=== PATIENT | male | born 1940 | race Two or more races ===

== ENCOUNTER 2025-04-08 07:47 | Inpatient (IN) | payer MEDICAID, SELFPAY ==
[2025-04-08] VITALS (52 sets, daily range): BP systolic 111–163; BP diastolic 54–89; PULSE 45–118; RESP 10–28; TEMP 36–39.3; O2SAT 83–100; BMI 25.8
--- NOTE | 2025-04-08 07:56 | EDNOTE_ITS ---
ED Seizures RME/HPI General Chief Complaint: Seizure Stated Complaint: SEIZURE Time Seen by Provider: 04/08/25 08:01 Arrival date/time: 04/08/25 07:47 Limitations: no limitations RME / HPI RME / HPI Narrative: 61 year old male with history of CVA, hemiplegia affecting right side, hyperlipidemia presents to the ED BIBA from [facility] for seizure like activity today. Per medics, on scene patient noted to have seizure like activity and given 4mg Versed. State seizure like activity had stopped. However noted en route patient developed a right-sided gaze. Per medics, [place] staff reported at baseline patient is a GCS of 14. Prehospital BS 122. On arrival to ED patient is unable to provide any additional history due to mental status. Related Data Allergies Allergy/AdvReac Type Severity Reaction Status Date / Time No Known Allergies Allergy Unverified 04/08/25 08:37 Review of Systems Review of Systems ROS Unobtainable: unobtainable due to mental status Past Medical History Past Medical History CARDIAC: Positive Cardiac Disorders and Hypercholesterolemia GASTROINTESTINAL: Positive Gastrointestinal Disorders and Irritable Bowel GENITOURINARY: Positive Genitourinary Disorders PSYCHO/SOCIAL: Positive Anxiety OTHER HISTORY: Positive Shingles and Chicken Pox Family History FAMILY HISTORY: Positive Family Cardiac Disorders (Father/Grandfather) and Family Gastrointestinal Problems (hepatitis mother) Social History SMOKING STATUS: Never smoker ED Exam General Limitations: Present no limitations Head Head exam: Present atraumatic and normocephalic Eye Eye exam: Present normal appearance ENT ENT exam: Present normal exam, normal oropharynx and mucous membranes moist Neck Neck exam: Present normal inspection, full ROM and trachea midline Chest Chest inspection: Present normal inspection and symmetric chest wall rise Respiratory Respiratory exam: Present normal lung sounds bilaterally Cardiovascular Cardiovascular exam: Present regular rate, normal rhythm and normal heart sounds Abdominal Exam Abdominal exam: Present soft and normal bowel sounds Neurological Exam Neurological exam: Present other (Weakness and contracture of the right upper and right lower extremities. ) Skin Skin exam: Present warm, dry, intact and normal color Course Quality Measures Current suspected stage: severe sepsis Possible source: unknown Blood cultures ordered: completed in ED Antibiotic ordered: Yes Pertinent labs: 04/08/25 04/08/25 08:10 12:16 Lactic Acid 4.8 H* mMol/L 2.2 H mMol/L (0.4-2.0) (0.4-2.0) Procalcitonin 0.08 ng/ml (0.0-0.49) sepsis Orders Category Date Time Status Bedside Influenza A&B Antigen Test NOW Care 04/08/25 13:32 Completed COVID-19 Screening Questionnaire NOW Care 04/08/25 14:37 Active COVID-19 Screening Questionnaire NOW Care 04/08/25 15:31 Active Waste Water Operator STAT Care 04/08/25 08:02 Active Continuous Pulse Oximetry STAT Care 04/08/25 08:02 Completed Decision to Admit X1 Care 04/08/25 14:37 Active Decision to Admit X1 Care 04/08/25 15:31 Active EKG (ED ONLY) *Do not use* NOW Care 04/08/25 08:02 Completed In and Out Catheter X1PRN Care 04/08/25 08:02 Completed Insert IV NOW Care 04/08/25 08:02 Active Miscellaneous Nursing Order NOW Care 04/08/25 13:00 Active NPO STAT Care 04/08/25 08:02 Active Strict Intake and Output Routine Care 04/08/25 08:[address] chest abdomen pelvis w con SEPSIS PROTOCOL Stat Exams 04/08/25 08:[address] head/brain wo con Stat Exams 04/08/25 08:08 Completed EKG (ED Only) Stat Exams 04/08/25 08:02 Ordered B-Type Natriuretic Peptide Stat Lab 04/08/25 08:10 Completed Blood Culture (Lab) Stat Lab 04/08/25 08:55 Received CBC Stat Lab 04/08/25 08:10 Completed COVID-19 Antigen (In-House) Stat Lab 04/08/25 13:42 Completed CSF Culture and Gram Stain Stat Lab 04/08/25 13:00 Results Cell Count w Diff, CSF Stat Lab 04/08/25 13:00 Completed Comprehensive Metabolic Panel Stat Lab 04/08/25 08:10 Completed Enterovirus RNA, PCR, CSF Stat Lab 04/08/25 13:00 Received Glucose,CSF Stat Lab 04/08/25 13:00 Completed HSV-1&2 DNA, QN, CSF* Stat Lab 04/08/25 13:00 Received LDH (Lactate Dehydrogenase) Stat Lab 04/08/25 08:10 Completed Lactate (Lactic Acid) Stat Lab 04/08/25 08:10 Completed Lactic Acid, 3 HR Stat Lab 04/08/25 12:16 Completed Lipase Stat Lab 04/08/25 08:10 Completed Magnesium Stat Lab 04/08/25 08:10 Completed Oligoclonal Bands, CSF* Stat Lab 04/08/25 13:00 Received Partial Thromboplastin Time Stat Lab 04/08/25 08:10 Completed Phosphorous Stat Lab 04/08/25 08:10 Completed Procalcitonin Stat Lab 04/08/25 08:10 Completed Protein Total,CSF Stat Lab 04/08/25 13:00 Completed Prothrombin Time with INR Stat Lab 04/08/25 08:10 Completed Troponin I Stat Lab 04/08/25 08:10 Completed Urinalysis Stat Lab 04/08/25 09:14 Completed Urine Culture Stat Lab 04/08/25 09:14 Received VDRL, CSF Qual* Stat Lab 04/08/25 13:00 Received West Nile Virus (IgG,IgM) CSF Stat Lab 04/08/25 13:00 Received Acetaminophen Ivpb [Ofirmev Inj] Med 04/08/25 08:07 Active 1,000 mg in 100 ml IV Q6HR LORazepam [Ativan Inj] Med 04/08/25 08:07 Discontinued 2 mg IVP X1 ONE Ondansetron Inj [Zofran Inj] Med 04/08/25 08:01 Active 4 mg IVP Q6HR PRN Piper/Tazo 3.375 gm Premix [Zosyn] Med 04/08/25 08:01 Discontinued 3.375 gm in 50 ml IV X1 Ringers Lactated 1000 ml [Lactated Ringers] 1,000 ml Med 04/08/25 08:01 Discontinued IV 999 mls/hr Vancomycin/Ns 1 gm Ivpb 200 ml Med 04/08/25 08:01 Discontinued IV X1 levETIRAcetam INJ [Keppra Inj] Med 04/08/25 08:07 Discontinued 1,000 mg IVP X1 ONE Oxygen Delivery NOW RT 04/08/25 08:02 Active Vital Signs Vital signs: Vital Signs Temperature 102.7 F H 04/08/25 08:02 Pulse Rate 99 04/08/25 08:02 Respiratory Rate 24 H 04/08/25 08:02 Blood Pressure 127/77 04/08/25 08:02 Pulse Oximetry (%) 96 04/08/25 08:02 Oxygen Delivery Method Oxy Mask 04/08/25 08:02 Oxygen Flow Rate 10 06/26/25 08:02 PROCEDURES: Procedure Comment Please refer to resident Dr. Devlin's note for LP procedure Seizure MDM Narrative MDM Narrative:: INoreen, hoda scribing for and in the presence of Dr. Bailey. Right-sided seizure consistent with hx of stroke, fever, AMS Assessment: sepsis with septic encephalopathy, fever, dehydration, hx of focal seizures, no airway issues, no hypoxia, no septic shock Plan: Sepsis work up, CT of head and abdomen/pelvis, alvarez catheter, antibiotics including Zosyn and Vancomycin, IV Tylenol, and IV fluids Patient data External records reviewed:: [facility] previous records (I reviewed ED visit on 07/29/2024 ), EMS form and Correction records (I reviewed pmhx and medication list from [facility] ) Clinical information provided by:: EMS (Provided prehospital course and hx ) Social determinants that could affect healthcare access:: housing (SNF resident ) Patient has the following chronic illnesses:: CVA, hemiplegia affecting right side, hyperlipidemia How is presenting disease/condition affected by chronic disease/condition?: exacerbated by Evaluation data The following diagnostics were reviewed and interpreted by me:: lab results, radiology exam(s) and EKG tracing(s) Lab and/or radiology exams considered but not ordered:: None Interpretation Summary: Ordering Physician: Gualberto Newman MD Date of Service: 04/08/25 Procedure(s): CT head/brain wo con Accession Number(s): [id number] cc: Gualberto Newman MD; Tom Tamayo MD; NO PRIMARY/FAMILY,PHYSICIAN~ Examination: CT brain head without contrast. 2-D sagittal coronal reconstructions Date and time of exam:April 08, 2025 0835 hours Comparison November 20, 2022. INDICATIONS: Seizures and fever today with head pain CTDI: vol (mGy):51.1 DLP: (mGycm):1079 Technique: Multiple CT axial sections of the brain have been obtained, 5 mm slice thickness. Contrast has not been administered. 2-D sagittal, coronal reconstructions have been obtained Low dose protocols were performed. One or more of the following dose reduction techniques were used; automated exposure control, adjustment of the mA and/or KV according to patient size, use of iterative reconstruction technique. 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 Dictated By: Tom Tamayo MD Signed By: <Electronically signed by Tom Tamayo MD in OV> 04/08/25 0912 Medications / Prescriptions Medications or Prescriptions considered but not ordered:: None Medication administrations:: Medication Administration History Acetaminophen (Ofirmev Inj) 1,000 mg in 100 mls @ 250 mls/hr IV Q6HR [id number] Stop: 04/09/25 00:23 Last Infusion: 04/08/25 10:10 Dose: Infused Documented By: Admin: 04/08/25 09:41 Dose: 250 mls/hr Documented By: Infusion: 04/08/25 08:44 Dose: Infused Documented By: Admin: 04/08/25 08:25 Dose: 250 mls/hr Documented By: CG Ondansetron HCl (Ondansetron Inj 2 Mg/Ml Inj 2 Ml) 4 mg IVP Q6HR PRN PRN Reason: NAUSEA OR VOMITING Stop: 05/08/25 08:00 Last Admin: 04/08/25 08:23 Dose: 4 mg Documented By: CG Discontinued Medications Lactated Ringer's (Lactated Ringers) 1,000 mls @ 999 mls/hr IV .Q1H1M ONE Stop: 04/08/25 09:01 Last Infusion: 04/08/25 08:45 Dose: Infused Documented By: Admin: 04/08/25 08:14 Dose: 999 mls/hr Documented By: CG Piperacillin/Tazobactam/Dextrose (Zosyn) 3.375 gm in 50 mls @ 100 mls/hr IV X1 ONE Stop: 04/08/25 08:30 Last Infusion: 04/08/25 09:35 Dose: Infused Documented By: Admin: 04/08/25 08:50 Dose: 100 mls/hr Documented By: CG Vancomycin/Sodium Chloride (Vancomycin/Ns 1 Gm Ivpb) 200 mls @ 120 mls/hr IV X1 ONE Stop: 04/08/25 09:40 Last Infusion: 04/08/25 10:57 Dose: Infused Documented By: Admin: 04/08/25 08:59 Dose: 120 mls/hr Documented By: MARKEL Levetiracetam (Levetiracetam Inj 100 Mg/Ml Vial 5ml) 1,000 mg IVP X1 ONE Stop: 04/08/25 08:08 Last Admin: 04/08/25 08:21 Dose: 1,000 mg Documented By: MARKEL Lorazepam (Lorazepam 2 Mg/Ml Vial) 2 mg IVP X1 ONE Stop: 04/08/25 08:08 Last Admin: 04/08/25 08:14 Dose: 2 mg Documented By: MARKEL See above Consultations Consultation(s) initiated? (list below): Yes Consultation #1 (Physician, Specialty, Details): I spoke with skimmer reverberatory Dr. Cantu. Recommends LP and if negative patient can be admitted to floors. Consultation #2 (Physician, Specialty, Details): I spoke with resident working with hospitalist Dr. Contreras. Discussed patients PMHx, HPI, ED course, exam findings, labs, and radiology results. The hospitalist agree to accept the patient for admission. Diagnosis Seizure Differential Diagnosis: intractable seizure disorder, focal seizure, generalized seizure, epileptic seizure and status epilepticus Most likely diagnosis given after review of the tests above:: Seizure Fever hx of CVA Sepsis Admission Indicated Admission indicated?: indicated Admission Request Was there a request for admission?: Yes Admission Attestation Admission request attestation: Discussed case with [] from Hospitalist service regarding admission. Discussed patients ED course, exam findings, labs, and radiology results. The Hospitalist [agrees,declines] to accept the patient for admission. Disposition Plan Disposition Plan: Admit Critical Care Time Critical Care Time Critical Care Time: Yes Total Critical Care Time (min.): 60 Attestation: The high probability of sudden, clinically significant deterioration in the patient's condition required the highest level of my preparedness to intervene urgently. The services I provided to this patient were to treat and/or prevent clinically significant deterioration. Services included the following: chart data review, reviewing nursing notes and/or old charts, documentation time, mobile sales consultant collaboration regarding findings and treatment options, medication orders and management, direct patient care, vital sign assessments and ordering, interpreting and reviewing diagnostic studies and lab tests. Aggregate critical care time includes only time during which I was engaged in work directly related to the patient's care, as described above, whether at bedside or elsewhere in the Emergency Department. It did not include time spent performing other reported procedures or the services of residents, students, nurses or physician assistants. Discharge Plan Plan Patient Disposition: Admit Acute Care w/in Hospital Prescriptions/Referrals Referrals: No Primary/Family,Physician [Referring Provider] - In 1 week Problem List Clinical Impression: Fever, Sepsis, Seizure, Hx of completed stroke Patient/Caregiver Discharge Instructions Print Language: Mongolian Stand Alone Forms: Elva Award Info., Patient Portal Info Letter
--- NOTE | 2025-04-08 08:01 | XR_ITS ---
Examination: CT chest with intravenous contrast CT abdomen with intravenous contrast CT pelvis with intravenous contrast 2-D coronal and sagittal reconstructions Time of exam: April 08, 2025 1023 hours INDICATIONS: Sepsis alert today, fevers chest and abdominal pain CTDI: vol (mGy) : 6.74 DLP: (mGycm): 538 Technique: Multiple axial images of the chest, abdomen and pelvis with intravenous contrast, 3.0 mm slice thickness. Images obtained post intravenous injection Isovue 370 60 cc. 2-D sagittal and coronal reconstructions. Low dose protocols were performed. One or more of the following dose reduction techniques were used; automated exposure control, adjustment of the mA and/or KV according to patient size, use of iterative reconstruction technique. Findings: No thoracic aortic aneurysm dilatation No pulmonary artery filling defects No paratracheal tracheobronchial or bronchopulmonary adenopathy 15 mm pulmonary nodule right upper lobe image 67 Prominent vascular congestion, suspicious for early pulmonary edema Retrocardiac gastric hernia No focal liver or splenic lesions No gallstones No pancreatic or adrenal mass No renal or ureteral calculi, no hydronephrosis Heavy abdominal aortic calcification Normal appendix No abdominal or pelvic abscess Abundant stool in the rectosigmoid Normal seminal vesicles Transverse prostate dimension 33 mm Urinary bladder wall thickening up to 10 mm Moderate osteopenia with advanced disc narrowing L5-S1 IMPRESSION: Mild heart failure No lobar pneumonia 15 mm pulmonary nodule right upper lobe No abdominal or pelvic abscess Normal appendix Thickening of the urinary bladder wall up to 10 mm, differential would include cystitis
--- NOTE | 2025-04-08 08:08 | XR_ITS ---
Examination: CT brain head without contrast. 2-D sagittal coronal reconstructions Date and time of exam:April 08, 2025 0835 hours Comparison November 20, 2022. INDICATIONS: Seizures and fever today with head pain CTDI: vol (mGy):51.1 DLP: (mGycm):1079 Technique: Multiple CT axial sections of the brain have been obtained, 5 mm slice thickness. Contrast has not been administered. 2-D sagittal, coronal reconstructions have been obtained Low dose protocols were performed. One or more of the following dose reduction techniques were used; automated exposure control, adjustment of the mA and/or KV according to patient size, use of iterative reconstruction technique. 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
[2025-04-08] MEDS: RINGERS LACTATED 1000 ML 1,000 ML 999 ML IV (08:14)
[2025-04-08] MEDS: LORazepam 2 MG/ML VIAL IVP (08:14)
[2025-04-08] MEDS: levETIRAcetam INJ 100 MG/ML VIAL 5ML 1000 MG IVP (08:21)
[2025-04-08] MEDS: ONDANSETRON INJ 2 MG/ML INJ 2 ML 4 MG IVP (08:23)
[2025-04-08] MEDS: ACETAMINOPHEN IVPB 1,000 MG/100 ML VIAL 250 MG IV ×2 (08:25→09:41)
[2025-04-08] MEDS: PIPER/TAZO 3.375 GM PREMIX 3.375 GM/50 ML BAG IV (08:50)
[2025-04-08] MEDS: VANCOMYCIN/NS 1 GM IVPB 200 ML IV (08:59)
[2025-04-08 09:07] LABS: Basophils # (Auto) 0.1 Thou/mm3 (0.0-0.2); Basophils % (Auto) 0 % (0-2.5); Eosinophils # (Auto) 0.2 Thou/mm3 (0.0-0.5); Eosinophils % (Auto) 2 % (0-10); Hematocrit 41.2 % (41.0-53.0); Hemoglobin 14.4 g/dL (13.5-16.0); Immature Granulocytes % (Auto) 1 % (0-0); Immature Granulocytes Auto 0.09 Thou/mm3 (0.00-0.00); Lymphocytes # (Auto) 1.2 Thou/mm3 (1.0-4.8); Lymphocytes % (Auto) 9 % (10-50); Mean Corpuscular Hemoglobin 31.6 pg (25.0-35.0); Mean Corpuscular Volume 90 fL (80-100); Monocytes # (Auto) 1.1 Thou/mm3 (0.0-0.8); Monocytes % (Auto) 8 % (0-12); Neutrophils # (Auto) 10.7 Thou/mm3 (1.8-7.7); Neutrophils % (Auto) 80 % (37-80); Nucleated Red Blood Cell % 0 /100 WBC (0); Platelet Count 207 Thou/mm3 (140-440); Red Blood Count 4.56 Miln/mm3 (4.50-5.90); White Blood Count 13.4 Thou/mm3 (3.8-10.6)
[2025-04-08 09:08] LABS: Lactate (Lactic Acid) 4.8 mMol/L (0.4-2.0)
[2025-04-08 09:26] LABS: Partial Thromboplastin Time 23.3 Seconds (22.0-36.0); Prothrombin Time 10.9 Seconds (9.0-12.2)
[2025-04-08 09:30] LABS: Collection Type, Urine Clean Catch
[2025-04-08 09:34] LABS: Bilirubin,Urine Negative (Negative); Blood,Urine Trace (Negative); Clarity,Urine Clear (Clear/Hazy); Color,Urine Lt-Yellow (Lt Yel-Yel); Glucose, Urine Negative (Negative); Hyaline Casts,Urine < 1 /hpf (0-1); Ketones,Urine Negative (Negative); Leukocyte Esterase,Urine Negative (Negative); Nitrite,Urine Negative (Negative); PH,Urine 6.5 (5.0-7.0); Protein,Urine Negative (Neg - Trace); RBC,Urine 17 /hpf (0-3); Specific Gravity,Urine 1.022 (1.001-1.035); Squamous Epithelial Cell,Urine < 1 /hpf (0-5); Urobilinogen,Urine Negative mg/dL (0.0-1.0); WBC,Urine 3 /hpf (0-5)
[2025-04-08 09:39] LABS: Alanine Aminotransferase 22 U/L (10-49); Albumin, Serum 3.7 gm/dL (3.4-4.8); Albumin/Globulin Ratio 1.2 (1.2-2.2); Alkaline Phosphatase 136 U/L (46-116); Anion Gap 10 (7-16); Aspartate Amino Transferase 25 U/L (0-34); BUN/Creatinine Ratio 20 Ratio (12-20); Bilirubin,Total 0.4 mg/dL (0.3-1.2); Blood Urea Nitrogen 16 mg/dL (9-23); Calcium 9.1 mg/dL (8.3-10.6); Calcium (Corrected) 9.3 mg/dL (8.5-10.1); Carbon Dioxide 22.9 mMol/L (20.0-31.0); Chloride 104 mMol/L (98-107); Creatinine (Component) 0.8 mg/dL (0.6-1.3); Estimated Creatinine Clearance 86.4 mL/min (>60); Globulin 3.2 gm/dL (2.3-3.5); Glucose 98 mg/dL (74-106); LDH (Lactate Dehydrogenase) 173 U/L (120-246); Lipase 27 U/L (12-53); Magnesium 1.7 mg/dL (1.6-2.6); Osmolality,Calculated 275 (275-295); Potassium 4.3 mMol/L (3.4-5.1); Procalcitonin 0.08 ng/ml (0.0-0.49); Sodium 137 mMol/L (136-145); Total Protein 6.9 gm/dL (5.7-8.2); Troponin I < 0.020 ng/mL (0.0-0.045); eGFR > 60 See Note
[2025-04-08 09:51] LABS: B-Type Natriuretic Peptide 39 pg/mL (0-100)
[2025-04-08 12:03] LABS: Reflex Lactate? Y
[2025-04-08 12:21] LABS: Lactic Acid, 3 HR 2.2 mMol/L (0.4-2.0)
--- NOTE | 2025-04-08 13:00 | PD.RESPROC ---
PROCEDURES: Procedure Date / Time 04/08/25 1300 Procedure Narrative Procedure Narrative: Lumbar Puncture Procedure Note INDICATION: Encephalopathy / Enecephalitis PROCEDURE INFORMATION SERVICES VICE PRESIDENT: James Devlin MD ATTENDING PHYSICIAN: Jamal Newman MD CONSENT: The procedure was emergent in the ER, the patient was unable to provide consent, and a designee was not immediately available. PROCEDURE SUMMARY: A time-out was performed. My hands were washed immediately prior to the procedure. I wore a surgical cap, mask with protective eyewear, sterile gown and sterile gloves throughout the procedure. The patient was placed in the LT lateral recumbent position with help from the nursing staff. The area was thoroughly cleansed and draped in a sterile fashion using betadine scrub. Anesthesia was achieved with 1% lidocaine. A 22-gauge 3.5-inch spinal needle was placed in the L3-L4 lumbar interspace. On the 2nd attempt, clear cerebral spinal fluid was obtained. The opening pressure was 10 cm H20. CSF was collected into 4 tubes. These were sent for the CSF analysis to lab, including 1 tube to be held for further analysis if needed. A sterile band-aid was placed over the puncture site. The patient had no complications and tolerated the procedure well. Estimated blood loss was <5mL. Plan of care discussed with ED attending Dr Newman, - James Devlin M.D. PGY2 (Internal Medicine) Disclaimer: Minor errors in senior informatica etl developer may be present as this note was dictated using voice recognition software. Lumbar Puncture Informed consent obtained: procedure done urgently Time out done, and the following verified: correct patient, side and site, procedure, patient position and implants and/or equipment Patient position: left lateral decubitus Skin prep: Povidone-Iodine 1% and Other Local anesthetic used: Lidocaine 2% Amount of anesthesia used (mL): 10 Spinal needle gauge: 22G Interspace used: L3-L4 Opening pressure (cmH20): 0 Fluid initially obtained: clear Complications: none
[2025-04-08 13:37] LABS: CSF Red Blood Cell 0 /cmm; CSF White Blood Cell 2 /cmm
[2025-04-08 13:42] LABS: CSF Cell Count Tube # Tube # 4; CSF Color Colorless (Colorless); CSF Mononuclear 100 %; CSF Polynuclear WBC 0 %; CSF, Appearance Clear (Clear)
[2025-04-08 13:46] LABS: Glucose,CSF 59 mg/dL (40-70); Protein Total,CSF 61 mg/dL (8-32)
[2025-04-08 14:01] LABS: CSF Gram Stain Alert Gram Stain Completed
[2025-04-08 14:29] LABS: COVID-19 Antigen (In-House) Negative (Negative)
--- NOTE | 2025-04-08 17:04 | PD.RESHP ---
Documentation for date of: 04/08/25 HPI History of Present Illness Chief complaint: Seizure History of present illness: Mr. Lepe is a 85-year-old [place]i-speaking male with past medical history of cerebral infarction, muscle weakness, aphasia, hemiplegia, hyperlipidemia, depression, anxiety and dysphagia who presented to [facility] emergency department from [facility] with a chief complaint of seizure. Patient is nonverbal, does not engage in conversation and is unable to provide any history or details. Called [facility] for additional details, case was discussed with patient's nurse according to her patient is alert and oriented x 2 at baseline, is alert to self and place. Patient reportedly had involuntary jerking movements likely consistent by a seizure which was witnessed by the staff, she reports that patient had an episode of micturition during the seizure, denied any oral trauma or fall. Reported that the patient was lying to his side during the episode, patient received 4 mg Versed by EMS and patient's seizure-like activity stopped. However noted en route patient developed a right-sided gaze per EMS. Patient's chart from [facility] reviewed, past medical history and medications reviewed patient is on Celexa for depression, Ativan 0.5 mg twice daily for anxiety and fidgeting and other as needed medications. ED Course: ED Vitals: On presentation blood pressure 127/77, heart rate 99, respiratory 24, temp 102.7 and O2 sat 96 on oxy mask 10 liters ED Labs: ED labs significant for WBC 13.4, neutrophil predominance noted, lactate initially elevated at 4.8 down trended to 2.2 phosphorus 2.0 alk phos 136. Urine analysis shows urine RBC 17, WBC 3, none bacteria sepsis alert called in the ED urine culture blood culture obtained. Lumbar puncture done in the emergency department shows WBC 2, RBC 0, glucose 59, protein 61 ED Imaging: CT scan of head in ED is negative for any acute hemorrhage mass effect or midline shift does show a large old infarct left middle cerebral artery distribution. CT chest abdomen pelvis shows mild heart failure, no lobar pneumonia, 15 mm pulmonary nodule right upper lobe, no abdominal or pelvic mass, normal appendix, thickening of urinary bladder wall differential cystitis ED Treatment: Patient received 1 L LR bolus, Ativan 2 mg x 1, Keppra loading dose, Zofran x 1 IV Tylenol and vancomycin/Zosyn in the emergency department Review of Systems Review of Systems ROS Unobtainable: unobtainable due to mental status Past Medical History Past Medical History Comments PMH COMMENT: PMH: Positive for cerebral infarction, muscle weakness, aphasia, hemiplegia, hyperlipidemia, depression, anxiety and dysphagia PSHx: Not obtained due to mental status Allergies: No known allergies per SNF history Social history: Unobtainable due to mental status Family History: Unobtainable due to mental status Exam Vital Signs Temp Pulse Resp BP Pulse Ox O2 Del Method O2 Flow Rate 97.6 F 66 24 H 131/68 H 95 Oxy Mask 9 04/08/25 12:32 04/08/25 17:03 04/08/25 17:03 04/08/25 16:30 04/08/25 17:03 04/08/25 12:32 04/08/25 17:03 Narrative Exam Physical Exam General: Awake and in no acute distress. Grunts in response, saturating well on room air. HEENT: Normocephalic, atraumatic, mucous membranes moist. Heart: Regular rate and rhythm, no murmurs. Lungs: Clear to auscultation with no wheezing or crackles. Abdomen: Soft, nondistended, nontender, positive bowel sounds. ?No guarding or rebound tenderness. Neurologic: Alert and oriented x0, no gross neurological deficit, and patient able to move all 4 extremities. Extremities: No edema. Skin: No rash or ecchymoses. Results: Labs 04/09/25 05:17 04/09/25 05:17 Labs: Short CBC 04/08/25 Range/Units 08:10 WBC 13.4 H (3.8-10.6) Thou/mm3 Hgb 14.4 (13.5-16.0) g/dL Hct 41.2 (41.0-53.0) % Plt Count 207 (140-440) Thou/mm3 BMP 04/08/25 08:10 Sodium 137 Potassium 4.3 Chloride 104 Carbon Dioxide 22.9 BUN 16 Creatinine 0.8 Glucose 98 Calcium 9.1 Cardiac Enzymes 04/08/25 Range/Units 08:10 Troponin I < 0.020 (0.0-0.045) ng/mL Liver Function 04/08/25 Range/Units 08:10 Total Bilirubin 0.4 (0.3-1.2) mg/dL AST 25 (0-34) U/L ALT 22 (10-49) U/L Alkaline Phosphatase 136 H (46-116) U/L Albumin 3.7 (3.4-4.8) gm/dL Urine 04/08/25 Range/Units 09:14 Urine Color Lt-Yellow (Lt Yel-Yel) Urine Clarity Clear (Clear/Hazy) Urine pH 6.5 (5.0-7.0) Ur Specific [place] 1.022 (1.001-1.035) Urine Protein Negative (Neg - Trace) Urine Glucose (UA) Negative (Negative) Quality Measures Quality Measures sepsis Current suspected stage: ruled out Possible source: unknown Blood cultures ordered: completed in ED Antibiotic ordered: Yes Advance care planning discussed with:: patient and other Medications Home Medications and Allergies Home Medications ?Medication ?Instructions ?Recorded ?Confirmed ?Type VIT D3 5,000 unit PO DAILY 04/08/25 04/08/25 History aspirin 325 mg capsule 325 mg PO QPM 04/08/25 04/08/25 History atorvastatin 40 mg tablet 40 mg PO .QD 04/08/25 04/08/25 History calcium 600 mg capsule 600 mg PO BID 04/08/25 04/08/25 History citalopram 10 mg tablet 10 mg PO .QD 04/08/25 04/08/25 History ferrous sulfate 325 mg (65 mg 325 mg PO QDAY 04/08/25 04/08/25 History iron) tablet (Feosol) lorazepam 0.5 mg tablet 0.5 mg PO BID 04/08/25 04/08/25 History magnesium oxide 400 mg (241.3 mg 400 mg PO BID 04/08/25 04/08/25 History magnesium) tablet methylcellulose (laxative) 500 mg 500 mg PO QDAY 04/08/25 04/08/25 History tablet (Fiber Therapy (methylcellulose)) multivitamin with minerals (DAILY 1 tab PO QDAY 04/08/25 04/08/25 History VITAMIN FORMULA-MINERALS tablet) ondansetron HCl 4 mg tablet 4 mg PO Q4H PRN nausea and vomiting 04/08/25 04/08/25 History sennosides 8.6 mg-docusate sodium 1 tab-cap PO BID 04/08/25 04/08/25 History 50 mg tablet (Colace 2-In-1) Allergies Allergy/AdvReac Type Severity Reaction Status Date / Time No Known Allergies Allergy Unverified 04/08/25 08:37 Visit Medications Acetaminophen (Acetaminophen Supp 650 Mg Supp) 650 mg ND Q6HR PRN PRN Reason: Fever > 100.4 Stop: 05/08/25 16:53 Acetaminophen (Ofirmev Inj) 1,000 mg in 100 mls @ 250 mls/hr IV Q6HR NIKUNJ Stop: 04/09/25 00:23 Last Infusion: 04/08/25 10:10 Dose: Infused Ceftriaxone Sodium/Dextrose (Rocephin/D5w 1gm Iv Premix) 1 gm in 50 mls @ 100 mls/hr IV QDAY NIKUNJ Stop: 04/15/25 17:02 Ondansetron HCl (Ondansetron Inj 2 Mg/Ml Inj 2 Ml) 4 mg IVP Q6HR PRN PRN Reason: NAUSEA OR VOMITING Stop: 05/08/25 08:00 Last Admin: 04/08/25 08:23 Dose: 4 mg Pantoprazole Sodium (Pantoprazole Inj 40 Mg Vial) 40 mg IVP QDAY [facility] Stop: 05/08/25 16:59 Discontinued Medications Lactated Ringer's (Lactated Ringers) 1,000 mls @ 999 mls/hr IV .Q1H1M ONE Stop: 04/08/25 09:01 Last Infusion: 04/08/25 08:45 Dose: Infused Piperacillin/Tazobactam/Dextrose (Zosyn) 3.375 gm in 50 mls @ 100 mls/hr IV X1 ONE Stop: 04/08/25 08:30 Last Infusion: 04/08/25 09:35 Dose: Infused Vancomycin/Sodium Chloride (Vancomycin/Ns 1 Gm Ivpb) 200 mls @ 120 mls/hr IV X1 ONE Stop: 04/08/25 09:40 Last Infusion: 04/08/25 10:57 Dose: Infused Levetiracetam (Levetiracetam Inj 100 Mg/Ml Vial 5ml) 1,000 mg IVP X1 ONE Stop: 04/08/25 08:08 Last Admin: 04/08/25 08:21 Dose: 1,000 mg Lorazepam (Lorazepam 2 Mg/Ml Vial) 2 mg IVP X1 ONE Stop: 04/08/25 08:08 Last Admin: 04/08/25 08:14 Dose: 2 mg Assessment & Plan Plan Assessment and plan: Summary: Mr. Lepe is a 85-year-old [place]i-speaking male with past medical history of cerebral infarction, muscle weakness, aphasia, hemiplegia, hyperlipidemia, depression, anxiety and dysphagia who presented to [facility] emergency department from [facility] with a chief complaint of seizure. Patient admitted to the hospital for further workup. #Acute encephalopathy likely secondary to infection #Witnessed seizure, likely provoked seizure secondary to infection #Cystitis Patient presented with chief complaint of seizures, was given 4 mg Versed by EMS, per [facility], patient reportedly had involuntary jerking movements likely consistent by a seizure which was witnessed by the staff, she reports that patient had an episode of micturition during the seizure, denied any oral trauma or fall. Patient's baseline is alert and oriented x 2. Currently patient possibly in postictal state. Patient was given loading dose Keppra, Ativan 2 mg x 1 and 1 L bolus in ED Lumbar puncture done in the emergency department shows WBC 2, RBC 0, glucose 59, protein 61 CT scan of head negative CT chest abdomen pelvis shows cystitis Plan: - IV ceftriaxone daily - Seizure precautions, neurochecks every 4 hours - Discussed with neurology, will monitor for now, appreciate recommendations - Consider EEG and MRI if patient has another episode of seizure where the patient's condition worsens - Continue IV Tylenol - Tylenol as needed for fever - NPO, referral to speech therapy - Follow CBC CMP in a.m. - Follow blood culture and urine culture - Follow CSF studies #History of CVA with residual aphasia and hemiplegia Patient on aspirin at home. Will hold, currently n.p.o. #Hyperlipidemia #Depression #Anxiety Patient on atorvastatin, Celexa and Ativan 0.5 twice daily for anxiety Will hold, currently n.p.o. #Dysphagia Patient has dysphagia diagnosed, on mechanically altered diet and nectar thick liquids at baseline -Referral to speech therapy DVT prophylaxis: Heparin every 12 hours GI prophylaxis: IV Protonix Diet: N.p.o., referral to speech therapy Lines: Peripheral IV Code status: Full code, POLST form reviewed Case discussed with Attending Dr. Contreras. Bridgett Cruz PGY1 Disclaimer: This note was dictated by speech recognition. Minor errors in rn occupational may be present due to voice recognition software. Attending Provider Attestation/Addendum After examination of the patient and review of the clinical data I feel that this patient needs admission to the hospital for further treatment/evaluation. I have discussed and was present for the essential components of the history, physical examination, diagnosis, and treatment plan with the resident. I agree with the patient's care as documented by the resident and amended herein by me. Marco Contreras, DO. Patient seen and evaluated in the ED in short, 85-year-old male with significant past medical history of CVA with residual right hemiplegia, aphasia and dysphagia, hyperlipidemia, depression anxiety, presented to the ED from SNF for reported seizure in which the patient did become incontinent however no tongue or lip biting was reported. Patient subsequently admitted for provoked febrile seizure In the ED, initial Tmax 102.7, patient was on OxyMask 10 L, SpO2 95% however time of that visit, the patient's mask was removed, SpO2 was in the mid 90s. Significant labs include a WBC of 13.4, lactic acid 2.2, phosphorus of 2, BMP largely unremarkable, UA negative. CT head negative for any acute intracranial pathology, CTAP demonstrated a 1.5 cm pulmonary nodule which will need outpatient follow-up and cystitis. Patient was given vancomycin and Zosyn, fluids, Keppra and Ativan in the ED. Of note, lumbar puncture performed, only remarkable lab value was slightly elevated protein at 61. Patient subsequently admitted to telemetry, stroke precautions in place, neurochecks every 4 hours. Neurology was consulted, will hold off on MRI and EEG for now unless patient worsens per neurology recommendations. Patient will be continued on ceftriaxone for cystitis, blood and urine cultures pending, a lumbar puncture was also performed in the ED, CSF cultures pending. PT evaluation pending, and Ativan is on board as needed for any breakthrough seizures. Will continue to monitor closely, appreciate specialist recommendations Although this document has been carefully reviewed, there may still be some phonetic and other typographical errors. These errors are purely grammatical due to imperfections in the software program and should not be construed in any way to compromise the substance of the patient's medical care during this visit.
[2025-04-08] MEDS: PANTOPRAZOLE INJ 40 MG VIAL IVP (17:41)
[2025-04-08] MEDS: cefTRIAXone/D5w 1gm IV premix 1 GM/50 ML BAG IV (17:42)
--- NOTE | 2025-04-08 21:16 | PC.NURSE ---
PT AWAKE BUT CONFUSE, UNABLE TO FOLLOW COMMANDS, MULTIPLE ATTEMPTS TO REMOVE O2,TELEBOX, SCD, AVASURE IN ROOM. DR. GOODMAN NOTIFIED WITH ORDER FOR LEFT MITTEN AND CARRIED OUT.
[2025-04-08] MEDS: HEPARIN SOD INJ 5000 UNIT/ML VIAL SC (21:37)
--- NOTE | 2025-04-08 21:46 | PC.NURSE ---
RN CONTACTED SON JORGE AND UPDATED WITH PLAN OF CARE. JORGE VERBALIZED UNDERSTANDING. JORGE AGREED WITH PT ON MITTEN OR SOFT WRIST RESTRAINT IF NEEDED.
--- NOTE | 2025-04-08 23:26 | PD.NEUROCONS ---
History of Present Illness Data of Consult Requesting Physician: Rey Contreras DO Primary Care Provider: Brady Simpson MD ([facility]) Consult Narrative History of present illness: Mr. Lepe is a 85-year-old male with old cerebral infarction with residual aphasia, hemiplegia, hyperlipidemia, depression, anxiety and dysphagia who presented to our ER from [facility] with a chief complaint of seizure. Patient is nonverbal, does not engage in conversation and is unable to provide any history or details. Patient's nurse mentioned that patient is alert and oriented x 2 at baseline, is alert to self and place. Patient reportedly had involuntary jerking movements likely consistent by a seizure which was witnessed by the staff associated with urinary incontinence, denied any oral trauma or fall.He received 4 mg Versed by EMS and patient's seizure-like activity stopped. However noted en route patient developed a right-sided gaze per EMS. Meds: He is on Celexa for depression, Ativan 0.5 mg twice daily for anxiety and fidgeting and other as needed medications. Workup in the ER: Vitals: blood pressure 127/77, heart rate 99, respiratory 24, temp 102.7 and O2 sat 96 on oxy mask 10 liters Labs: for WBC 13.4, neutrophil predominance noted, lactate initially elevated at 4.8 down trended to 2.2 phosphorus 2.0 alk phos 136. Urine analysis shows urine RBC 17, WBC 3, none bacteria sepsis alert called in the ED urine culture blood culture obtained. CSF: WBC 2, RBC 0, glucose 59, protein 61 Imaging: CT scan of head is negative for any acute hemorrhage mass effect or midline shift does show a large old infarct left middle cerebral artery distribution. CT chest abdomen pelvis shows mild heart failure, no lobar pneumonia, 15 mm pulmonary nodule right upper lobe, no abdominal or pelvic mass, normal appendix, thickening of urinary bladder wall differential cystitis Patient received 1 L LR bolus, Ativan 2 mg x 1, Keppra loading dose, Zofran x 1 IV Tylenol and vancomycin/Zosyn and he got admitted to Telemetry. Neurology was consulted. cc:: cc: Rey Contreras DO Past Medical History Past Medical History Comments PMH COMMENT: PMH: Positive for cerebral infarction, muscle weakness, aphasia, hemiplegia, hyperlipidemia, depression, anxiety and dysphagia PSHx: Not obtained due to mental status Allergies: No known allergies per SNF history Social history: Unobtainable due to mental status Family History: Unobtainable due to mental status Meds Home Medications and Allergies Home Medications ?Medication ?Instructions ?Recorded ?Confirmed ?Type VIT D3 5,000 unit PO DAILY 04/08/25 04/08/25 History aspirin 325 mg capsule 325 mg PO QPM 04/08/25 04/08/25 History atorvastatin 40 mg tablet 40 mg PO .QD 04/08/25 04/08/25 History calcium 600 mg capsule 600 mg PO BID 04/08/25 04/08/25 History citalopram 10 mg tablet 10 mg PO .QD 04/08/25 04/08/25 History ferrous sulfate 325 mg (65 mg 325 mg PO QDAY 04/08/25 04/08/25 History iron) tablet (Feosol) lorazepam 0.5 mg tablet 0.5 mg PO BID 04/08/25 04/08/25 History magnesium oxide 400 mg (241.3 mg 400 mg PO BID 04/08/25 04/08/25 History magnesium) tablet methylcellulose (laxative) 500 mg 500 mg PO QDAY 04/08/25 04/08/25 History tablet (Fiber Therapy (methylcellulose)) multivitamin with minerals (DAILY 1 tab PO QDAY 04/08/25 04/08/25 History VITAMIN FORMULA-MINERALS tablet) ondansetron HCl 4 mg tablet 4 mg PO Q4H PRN nausea and vomiting 04/08/25 04/08/25 History sennosides 8.6 mg-docusate sodium 1 tab-cap PO BID 04/08/25 04/08/25 History 50 mg tablet (Colace 2-In-1) Allergies Allergy/AdvReac Type Severity Reaction Status Date / Time No Known Allergies Allergy Unverified 04/08/25 08:37 Exam - Neurology Vital Signs Temp Pulse Resp BP Pulse Ox O2 Del Method O2 Flow Rate 97.2 F 88 13 153/71 H 97 Nasal Cannula 4 04/08/25 20:00 04/08/25 20:00 04/08/25 20:00 04/08/25 20:00 04/08/25 20:00 04/08/25 20:00 04/08/25 20:00 Narrative Exam GENERAL APPEARANCE: Well developed, well-nourished in no acute distress. HEENT: Normocephalic, atraumatic, extraocular movements intact. Pupils: Equal reacting to light. NECK: Supple, no JVD or bruits. CARDIOVASULAR: Heart: S1, S2 heard, irregular without S3-S4 or murmur no rubs or gallops. LUNGS/CHEST: Clear to auscultation bilaterally. No rails, rhonchi, or wheezing. Normal inspection. ABDOMEN: Soft, nontender, with normal bowel sounds. No pulsatile masses. No rebound, rigidity, or guarding. Normal inspection and palpation. EXTREMITIES: Normal inspection and palpation. No edema, clubbing or cyanosis. SKIN: Warm and dry without rashes. Normal inspection. MUSCULOSKELETAL: No cervical, thoracic, lumbar or midline bony tenderness. Normal inspection. NEURO: Alert, awake. Exam: limited, residual right hemiparesis and aphasia noted. No signs of meningeal irritation noted. PSYCHIATRIC: limited. Results Labs 04/08/25 08:10 04/08/25 08:10 Labs: Short CBC 04/08/25 Range/Units 08:10 WBC 13.4 H (3.8-10.6) Thou/mm3 Hgb 14.4 (13.5-16.0) g/dL Hct 41.2 (41.0-53.0) % Plt Count 207 (140-440) Thou/mm3 BMP 04/08/25 08:10 Sodium 137 Potassium 4.3 Chloride 104 Carbon Dioxide 22.9 BUN 16 Creatinine 0.8 Glucose 98 Calcium 9.1 Cardiac Enzymes 04/08/25 Range/Units 08:10 Troponin I < 0.020 (0.0-0.045) ng/mL Liver Function 04/08/25 Range/Units 08:10 Total Bilirubin 0.4 (0.3-1.2) mg/dL AST 25 (0-34) U/L ALT 22 (10-49) U/L Alkaline Phosphatase 136 H (46-116) U/L Albumin 3.7 (3.4-4.8) gm/dL Urine 04/08/25 Range/Units 09:14 Urine Color Lt-Yellow (Lt Yel-Yel) Urine Clarity Clear (Clear/Hazy) Urine pH 6.5 (5.0-7.0) Ur Specific [place] 1.022 (1.001-1.035) Urine Protein Negative (Neg - Trace) Urine Glucose (UA) Negative (Negative) Assessment & Plan Assessment and plan (1) Seizure: Status: Acute Assessment and plan: could have been brought on by acute UTI presented with high fever and sz of new onset Loaded with keppra and given Benzos enroute No sz after admission Fu with MRI brain and EEG if the mental status does not improve. (2) Urinary tract infection: Status: Acute Assessment and plan: continue with IV antibiotics and fu with urine C/S (3) CVA, old, hemiparesis: Status: Chronic Assessment and plan: with residual right hemiparesis and aphasia. continue with ASA, statin, BP control.
[2025-04-09] VITALS (9 sets, daily range): BP systolic 120–141; BP diastolic 58–85; PULSE 53–98; RESP 17–97; TEMP 36.1–36.7; O2SAT 96–100; BMI 25.0
[2025-04-09 05:25] LABS: Lactate (Lactic Acid) 1.5 mMol/L (0.4-2.0)
[2025-04-09 05:34] LABS: Basophils # (Auto) 0.1 Thou/mm3 (0.0-0.2); Basophils % (Auto) 1 % (0-2.5); Eosinophils # (Auto) 0.4 Thou/mm3 (0.0-0.5); Eosinophils % (Auto) 4 % (0-10); Hemoglobin 14.3 g/dL (13.5-16.0); Immature Granulocytes % (Auto) 1 % (0-0); Immature Granulocytes Auto 0.05 Thou/mm3 (0.00-0.00); Lymphocytes # (Auto) 1.3 Thou/mm3 (1.0-4.8); Lymphocytes % (Auto) 16 % (10-50); Mean Corpuscular HGB Conc 33.3 g/dl (31.0-37.0); Mean Corpuscular Hemoglobin 31.1 pg (25.0-35.0); Mean Corpuscular Volume 94 fL (80-100); Monocytes # (Auto) 1.1 Thou/mm3 (0.0-0.8); Monocytes % (Auto) 13 % (0-12); Neutrophils # (Auto) 5.3 Thou/mm3 (1.8-7.7); Neutrophils % (Auto) 66 % (37-80); Nucleated Red Blood Cell % 0 /100 WBC (0); Platelet Count 190 Thou/mm3 (140-440); RDW Standard Deviation 43.6 fL (35.1-43.9)
[2025-04-09 05:58] LABS: Alanine Aminotransferase 18 U/L (10-49); Albumin, Serum 3.5 gm/dL (3.4-4.8); Albumin/Globulin Ratio 1.1 (1.2-2.2); Alkaline Phosphatase 123 U/L (46-116); Anion Gap 8 (7-16); Aspartate Amino Transferase 26 U/L (0-34); BUN/Creatinine Ratio 16 Ratio (12-20); Bilirubin,Total 0.4 mg/dL (0.3-1.2); Blood Urea Nitrogen 11 mg/dL (9-23); Calcium (Corrected) 9.4 mg/dL (8.5-10.1); Carbon Dioxide 27.3 mMol/L (20.0-31.0); Cardiac Risk Estimate 3.5 RATIO (4.0-6.7); Chloride 103 mMol/L (98-107); Cholesterol 139 mg/dL (132-200); Creatinine (Component) 0.7 mg/dL (0.6-1.3); Estimated Creatinine Clearance 68.4 mL/min (>60); Globulin 3.3 gm/dL (2.3-3.5); Glucose 91 mg/dL (74-106); HDL Cholesterol 40 mg/dL (40-60); LDL Cholesterol,Calculated 65 mg/dL (0-130); Magnesium 1.9 mg/dL (1.6-2.6); Osmolality,Calculated 275 (275-295); Phosphorous 2.8 mg/dL (2.4-5.1); Potassium 4.2 mMol/L (3.4-5.1); Sodium 138 mMol/L (136-145); Thyroid Stimulating Hormone 1.37 uIU/mL (0.55-4.78); Total Protein 6.8 gm/dL (5.7-8.2); Triglycerides 169 mg/dL (30-150); eGFR > 60 See Note
[2025-04-09 06:35] LABS: Partial Thromboplastin Time 30.9 Seconds (22.0-36.0); Prothrombin Time 11.3 Seconds (9.0-12.2)
[2025-04-09] MEDS: PANTOPRAZOLE INJ 40 MG VIAL IVP (09:07)
[2025-04-09] MEDS: HEPARIN SOD INJ 5000 UNIT/ML VIAL SC ×2 (09:07→20:46)
[2025-04-09] MEDS: cefTRIAXone/D5w 1gm IV premix 1 GM/50 ML BAG IV (09:07)
--- NOTE | 2025-04-09 09:07 | PC.SS ---
SS follow up: Attempted contact with patient's son, Julio Lepe listed on faceshheet . No answer. Voicemail provided.
--- NOTE | 2025-04-09 09:20 | PC.SS ---
Initial assessment: this is 85-year old male admitted for febrile seizure. 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 Patient information obtained by facility RN. Patient is wheelchair bound, two person assist. Patient's PCP is provider Brady Simpson. Patient does not use 02 at the facility. Patient is not on dialysis. Patient is non-verbal and confused at baseline. Patient to return to facility at discharge, will need transportation arranged. Point of contact is patient's son, Julio Lepe , contact confirmed by the facility staff. D/c plan: return to [facility] Next of kin: sonJulio
--- NOTE | 2025-04-09 13:16 | ESPR_ITS ---
Documentation for date of: 04/09/25 Subjective Subjective Interval history: Patient seen and examined at bedside, is more awake alert and oriented today, no seizures noted in the last 24 hours. Patient mumbles to response, unable to understand responses. Was placed on medical restraints overnight, was seen by speech therapy speech recommended dysphagia 1 diet. Patient's home medications aspirin, atorvastatin, citalopram and Ativan resumed Started on bowel regimen. Will wait for final neurology recommendations. Will continue with IV antibiotics. Exam Vital Signs Temp Pulse Resp BP Pulse Ox O2 Del Method O2 Flow Rate 96.9 F 65 20 128/69 98 Nasal Cannula 2 04/09/25 08:00 04/09/25 08:00 04/09/25 08:00 04/09/25 08:00 04/09/25 08:00 04/09/25 08:00 04/09/25 04:00 Narrative Exam Physical Exam General: Awake and in no acute distress. More responsive compared to yesterday, has bilateral wrist restraints intact. HEENT: Normocephalic, atraumatic, mucous membranes moist. Heart: Regular rate and rhythm, no murmurs. Lungs: Clear to auscultation with no wheezing or crackles. Abdomen: Soft, nondistended, nontender, positive bowel sounds. ?No guarding or rebound tenderness. Neurologic: Alert and oriented x1, no gross neurological deficit, and patient able to move all 4 extremities. Extremities: No edema. Skin: No rash or ecchymoses. Objective Labs 04/09/25 05:17 04/09/25 05:17 Labs: Laboratory Results - last 24 hr 04/08/25 04/08/25 04/09/25 13:00 13:42 05:17 WBC 8.0 D RBC 4.60 Hgb 14.3 Hct 43.0 MCV 94 MCH 31.1 MCHC 33.3 RDW Std Deviation 43.6 Plt Count 190 Neut % (Auto) 66 Lymph % (Auto) 16 Ray % (Auto) 13 H Eos % (Auto) 4 Baso % (Auto) 1 Neut # (Auto) 5.3 Lymph # (Auto) 1.3 Ray # (Auto) 1.1 H Eos # (Auto) 0.4 Baso # (Auto) 0.1 Immature Gran # (Auto) 0.05 H Absolute Nucleated RBC 0.00 Immature Gran % 1 H Nucleated RBC % 0 PT 11.3 INR 1.0 APTT 30.9 Sodium 138 Potassium 4.2 Chloride 103 Carbon Dioxide 27.3 Anion Gap 8 BUN 11 Creatinine 0.7 Estim Creat Clear Calc 68.4 eGFR > 60 BUN/Creatinine Ratio 16 Glucose 91 Calculated Osmolality 275 Lactic Acid 1.5 Calcium 9.0 Corrected Calcium 9.4 Phosphorus 2.8 Magnesium 1.9 Total Bilirubin 0.4 AST 26 ALT 18 Alkaline Phosphatase 123 H Total Protein 6.8 Albumin 3.5 Globulin 3.3 Albumin/Globulin Ratio 1.1 L Triglycerides 169 H Cholesterol 139 LDL Cholesterol, Calc 65 HDL Cholesterol 40 Cholesterol/HDL Ratio 3.5 L TSH 1.37 CSF Appearance Clear CSF Color Colorless CSF WBC 2 CSF RBC 0 CSF Cell Count Tube # Tube # 4 CSF Mononuclear WBCs 100 CSF Polynuclear WBCs 0 CSF Glucose 59 CSF Total Protein 61 H SARS-CoV-2 Ag (Rapid) Negative Quality Measures Quality Measures sepsis Current suspected stage: ruled out Possible source: unknown Blood cultures ordered: completed in ED Antibiotic ordered: Yes Advance care planning discussed with:: patient Assessment & Plan Assessment Current Active Medications: Generic Name Dose Route Start Last Admin Trade Name Freq PRN Reason Stop Dose Admin Acetaminophen 650 mg 04/08/25 16:54 Acetaminophen Supp 650 Mg Supp NH 05/08/25 16:53 Q6HR PRN Fever > 100.4 Heparin Sodium (Porcine) 5,000 unit 04/08/25 21:00 04/09/25 09:07 Heparin Sod Inj 5000 Unit/Ml Vial SC 04/22/25 20:59 5,000 unit Q12H NIKUNJ Administration Ceftriaxone Sodium/Dextrose 1 gm in 50 mls @ 100 mls/hr 04/08/25 17:03 04/09/25 09:07 Rocephin/D5w 1gm Iv Premix IV 04/15/25 17:02 50 mls/hr QDAY NIKUNJ Administration Ondansetron HCl 4 mg 04/08/25 08:01 04/08/25 08:23 Ondansetron Inj 2 Mg/Ml Inj 2 Ml IVP 05/08/25 08:00 4 mg Q6HR PRN Administration NAUSEA OR VOMITING Pantoprazole Sodium 40 mg 04/08/25 17:00 04/09/25 09:07 Pantoprazole Inj 40 Mg Vial IVP 05/08/25 16:59 40 mg QDAY NIKUNJ Administration Plan Assessment and plan: Summary: Mr. Lepe is a 85-year-old Togolese-speaking male with past medical history of cerebral infarction, muscle weakness, aphasia, hemiplegia, hyperlipidemia, depression, anxiety and dysphagia who presented to [facility] emergency department from [facility] with a chief complaint of seizure. Patient admitted to the hospital for further workup. #Acute encephalopathy #Witnessed seizure, likely provoked seizure, febrile seizure #Cystitis Patient presented with chief complaint of seizures, was given 4 mg Versed by EMS, per skilled nursing, patient reportedly had involuntary jerking movements likely consistent by a seizure which was witnessed by the staff, she reports that patient had an episode of micturition during the seizure, denied any oral trauma or fall. Patient's baseline is alert and oriented x 2. Currently patient possibly in postictal state. Patient was given loading dose Keppra, Ativan 2 mg x 1 and 1 L bolus in ED Lumbar puncture done in the emergency department shows WBC 2, RBC 0, glucose 59, protein 61 CT scan of head negative CT chest abdomen pelvis shows cystitis Plan: - IV ceftriaxone daily - Seizure precautions, neurochecks every 4 hours - Discussed with neurology, will monitor for now, appreciate recommendations - Will consider EEG and MRI if patient has another episode of seizure - Tylenol as needed for fever - Speech evaluated patient recommends dysphagia diet - Follow CBC CMP in a.m. - Follow blood culture and urine culture - Follow CSF studies #History of CVA #Aphasia, hemiplegia by history Patient on aspirin at home. Resume home dose aspirin and atorvastatin #Hyperlipidemia #Depression #Anxiety Patient on atorvastatin, Celexa and Ativan 0.5 twice daily for anxiety Resume home medications #Dysphagia Patient has dysphagia diagnosed, on mechanically altered diet and nectar thick liquids at baseline - Started on dysphagia diet #15 mm pulmonary nodule right upper lobe Outpatient follow-up DVT prophylaxis: Heparin every 12 hours GI prophylaxis: IV Protonix Diet: Dysphagia 1 Lines: Peripheral IV Code status: Full code, POLST form reviewed Case discussed with Attending Dr. Contreras. Bridgett Cruz PGY1 Disclaimer: This note was dictated by speech recognition. Minor errors in registered phlebotomist part time may be present due to voice recognition software. Attending Provider Attestation/Addendum I have discussed and was present for the essential components of the history, physical examination, diagnosis, and treatment plan with the resident. I agree with the patient's care as documented by the resident and amended herein by me. Marco Contreras DO. Patient seen and evaluated this AM. No acute events overnight, vital signs stable, patient afebrile, labs largely unremarkable today. Patient's mentation significantly improved from time of admission, hence will hold off on MRI and EEG for now. Patient will continue on aspirin statin and ceftriaxone for urinary tract infection. CSF, blood and urine culture still pending, neurology consulted, appreciate recommendations. Speech recommending dysphagia diet. Although this document has been carefully reviewed, there may still be some phonetic and other typographical errors. These errors are purely grammatical due to imperfections in the software program and should not be construed in any way to compromise the substance of the patient's medical care during this visit.
--- NOTE | 2025-04-09 14:33 | PC.SS ---
Rounding note: MRI and EEG are pending. D/c plan is to return to [facility].
[2025-04-09] MEDS: POLYETHYLENE GLYCOL 17 GM PACKET 34 GM PO (18:46)
[2025-04-09] MEDS: ATORVASTATIN CALCIUM 20 MG TABLET 40 MG PO (18:47)
[2025-04-09] MEDS: CITALOPRAM 20 MG TABLET 10 MG PO (18:47)
[2025-04-09] MEDS: LORazepam 0.5 MG TABLET PO (20:46)
[2025-04-09] MEDS: SENNA/DOCUSATE SOD 1 TAB TABLET PO (20:46)
--- NOTE | 2025-04-09 22:55 | PD.NEUROPROG ---
Documentation for date of: 04/09/25 Subjective Subjective Interval history: Mr. Lepe was seen in telemetry today, no changes reported, no sz reported after admission. Exam - Neurology Vital Signs Temp Pulse Resp BP Pulse Ox O2 Del Method O2 Flow Rate 97.1 F 98 18 133/71 H 98 Room Air 1 04/09/25 20:00 04/09/25 22:13 04/09/25 22:13 04/09/25 20:00 04/09/25 20:00 04/09/25 20:00 04/09/25 20:00 Narrative Exam GENERAL APPEARANCE: Well developed, well-nourished in no acute distress. HEENT: Normocephalic, atraumatic, extraocular movements intact. Pupils: Equal reacting to light. NECK: Supple, no JVD or bruits. CARDIOVASULAR: Heart: S1, S2 heard, irregular without S3-S4 or murmur no rubs or gallops. LUNGS/CHEST: Clear to auscultation bilaterally. No rails, rhonchi, or wheezing. Normal inspection. ABDOMEN: Soft, nontender, with normal bowel sounds. No pulsatile masses. No rebound, rigidity, or guarding. Normal inspection and palpation. EXTREMITIES: Normal inspection and palpation. No edema, clubbing or cyanosis. SKIN: Warm and dry without rashes. Normal inspection. MUSCULOSKELETAL: No cervical, thoracic, lumbar or midline bony tenderness. Normal inspection. NEURO: Alert, awake. Exam: limited, residual right hemiparesis and aphasia noted. No signs of meningeal irritation noted. PSYCHIATRIC: limited. Objective Labs 04/09/25 05:17 04/09/25 05:17 Labs: Laboratory Results - last 24 hr 04/09/25 05:17 WBC 8.0 D RBC 4.60 Hgb 14.3 Hct 43.0 MCV 94 MCH 31.1 MCHC 33.3 RDW Std Deviation 43.6 Plt Count 190 Neut % (Auto) 66 Lymph % (Auto) 16 [place] % (Auto) 13 H Eos % (Auto) 4 Baso % (Auto) 1 Neut # (Auto) 5.3 Lymph # (Auto) 1.3 [place] # (Auto) 1.1 H Eos # (Auto) 0.4 Baso # (Auto) 0.1 Immature Gran # (Auto) 0.05 H Absolute Nucleated RBC 0.00 Immature Gran % 1 H Nucleated RBC % 0 PT 11.3 INR 1.0 APTT 30.9 Sodium 138 Potassium 4.2 Chloride 103 Carbon Dioxide 27.3 Anion Gap 8 BUN 11 Creatinine 0.7 Estim Creat Clear Calc 68.4 eGFR > 60 BUN/Creatinine Ratio 16 Glucose 91 Calculated Osmolality 275 Lactic Acid 1.5 Calcium 9.0 Corrected Calcium 9.4 Phosphorus 2.8 Magnesium 1.9 Total Bilirubin 0.4 AST 26 ALT 18 Alkaline Phosphatase 123 H Total Protein 6.8 Albumin 3.5 Globulin 3.3 Albumin/Globulin Ratio 1.1 L Triglycerides 169 H Cholesterol 139 LDL Cholesterol, Calc 65 HDL Cholesterol 40 Cholesterol/HDL Ratio 3.5 L TSH 1.37 Assessment & Plan Assessment and plan (1) Seizure: Status: Acute Assessment and plan: could have been brought on by acute UTI presented with high fever and sz of new onset Loaded with keppra and given Benzos enroute No sz after admission Fu with MRI brain and EEG if the mental status does not improve. (2) Urinary tract infection: Status: Acute Assessment and plan: continue with IV antibiotics and fu with urine C/S (3) CVA, old, hemiparesis: Status: Chronic Assessment and plan: with residual right hemiparesis and aphasia. continue with ASA, statin, BP control.
[2025-04-10] VITALS: BP 139/77; PULSE 57; PULSE 59; RESP 15; TEMP 36.6; O2SAT 92
[2025-04-10 04:00] VITALS: BP 146/66; PULSE 53; RESP 14; TEMP 36.4; O2SAT 94
[2025-04-10 06:00] VITALS: BMI 25.0
[2025-04-10 06:22] LABS: Basophils % (Auto) 1 % (0-2.5); Eosinophils # (Auto) 0.5 Thou/mm3 (0.0-0.5); Eosinophils % (Auto) 6 % (0-10); Hematocrit 42.3 % (41.0-53.0); Hemoglobin 13.8 g/dL (13.5-16.0); Immature Granulocytes % (Auto) 1 % (0-0); Immature Granulocytes Auto 0.09 Thou/mm3 (0.00-0.00); Lymphocytes # (Auto) 2.2 Thou/mm3 (1.0-4.8); Lymphocytes % (Auto) 27 % (10-50); Mean Corpuscular HGB Conc 32.6 g/dl (31.0-37.0); Mean Corpuscular Hemoglobin 30.8 pg (25.0-35.0); Mean Corpuscular Volume 94 fL (80-100); Monocytes # (Auto) 1.3 Thou/mm3 (0.0-0.8); Monocytes % (Auto) 16 % (0-12); Neutrophils # (Auto) 4.1 Thou/mm3 (1.8-7.7); Neutrophils % (Auto) 50 % (37-80); Nucleated Red Blood Cell % 0 /100 WBC (0); Platelet Count 173 Thou/mm3 (140-440); RDW Standard Deviation 43.8 fL (35.1-43.9); Red Blood Count 4.48 Miln/mm3 (4.50-5.90); White Blood Count 8.2 Thou/mm3 (3.8-10.6)
[2025-04-10 06:25] VITALS: PULSE 62; RESP 18; RESP 92
[2025-04-10 06:42] LABS: Alanine Aminotransferase 18 U/L (10-49); Albumin, Serum 3.4 gm/dL (3.4-4.8); Albumin/Globulin Ratio 1.1 (1.2-2.2); Alkaline Phosphatase 112 U/L (46-116); Anion Gap 8 (7-16); Aspartate Amino Transferase 32 U/L (0-34); BUN/Creatinine Ratio 15 Ratio (12-20); Bilirubin,Total 0.4 mg/dL (0.3-1.2); Blood Urea Nitrogen 12 mg/dL (9-23); Calcium 8.6 mg/dL (8.3-10.6); Calcium (Corrected) 9.1 mg/dL (8.5-10.1); Carbon Dioxide 26.8 mMol/L (20.0-31.0); Chloride 104 mMol/L (98-107); Creatinine (Component) 0.8 mg/dL (0.6-1.3); Estimated Creatinine Clearance 59.8 mL/min (>60); Globulin 3.1 gm/dL (2.3-3.5); Glucose 87 mg/dL (74-106); Osmolality,Calculated 276 (275-295); Phosphorous 2.9 mg/dL (2.4-5.1); Potassium 4.2 mMol/L (3.4-5.1); Sodium 139 mMol/L (136-145); Total Protein 6.5 gm/dL (5.7-8.2); eGFR > 60 See Note
[2025-04-10 08:00] VITALS: BP 134/66; PULSE 60; RESP 19; TEMP 36.1; O2SAT 92
[2025-04-10] MEDS: PANTOPRAZOLE INJ 40 MG VIAL IVP (08:30)
[2025-04-10] MEDS: SENNA/DOCUSATE SOD 1 TAB TABLET PO (08:30)
[2025-04-10] MEDS: ATORVASTATIN CALCIUM 20 MG TABLET 40 MG PO (08:30)
[2025-04-10] MEDS: LORazepam 0.5 MG TABLET PO (08:30)
[2025-04-10] MEDS: HEPARIN SOD INJ 5000 UNIT/ML VIAL SC (08:30)
[2025-04-10] MEDS: cefTRIAXone/D5w 1gm IV premix 1 GM/50 ML BAG IV (08:30)
[2025-04-10] MEDS: CITALOPRAM 20 MG TABLET 10 MG PO (08:30)
[2025-04-10] MEDS: MULTIVITAMINS TABLET 1 TAB PO (08:30)
[2025-04-10 12:00] VITALS: BP 138/65; PULSE 63; RESP 17; TEMP 36.6; O2SAT 99
--- NOTE | 2025-04-10 14:37 | PC.SS ---
Addendum entered by Jane White 04/10/25 15:30: ASW contacted [employer] [phone] and requested gurney transport for the pt to return to [facility]. Trip Resevation #[id number] was provided by [employer]. ASW contacted [facility] [phone] and arranged p/u eta for 1900. Original Note: Per rounding meeting, pt is ready for d/c. ASW will arrange transportation back to [facility]. RN is aware and [facility] is aware that pt will d/c to return to SNF. ASW will inform RN and and SNF of p/u eta.
--- NOTE | 2025-04-10 15:05 | PD.RESPRO ---
Documentation for date of: 04/10/25 Exam Vital Signs Temp Pulse Resp BP Pulse Ox O2 Del Method O2 Flow Rate 97.8 F 63 17 138/65 H 99 Nasal Cannula 2 04/10/25 12:00 04/10/25 12:00 04/10/25 12:00 04/10/25 12:00 04/10/25 12:00 04/10/25 12:00 04/10/25 12:00 Objective Labs 04/10/25 05:49 04/10/25 05:49 Labs: Laboratory Results - last 24 hr 04/10/25 05:49 WBC 8.2 RBC 4.48 L Hgb 13.8 Hct 42.3 MCV 94 MCH 30.8 MCHC 32.6 RDW Std Deviation 43.8 Plt Count 173 Neut % (Auto) 50 Lymph % (Auto) 27 [place] % (Auto) 16 H Eos % (Auto) 6 Baso % (Auto) 1 Neut # (Auto) 4.1 Lymph # (Auto) 2.2 [place] # (Auto) 1.3 H Eos # (Auto) 0.5 Baso # (Auto) 0.0 Immature Gran # (Auto) 0.09 H Absolute Nucleated RBC 0.00 Immature Gran % 1 H Nucleated RBC % 0 Sodium 139 Potassium 4.2 Chloride 104 Carbon Dioxide 26.8 Anion Gap 8 BUN 12 Creatinine 0.8 Estim Creat Clear Calc 59.8 L eGFR > 60 BUN/Creatinine Ratio 15 Glucose 87 Calculated Osmolality 276 Calcium 8.6 Corrected Calcium 9.1 Phosphorus 2.9 Magnesium 2.0 Total Bilirubin 0.4 AST 32 ALT 18 Alkaline Phosphatase 112 Total Protein 6.5 Albumin 3.4 Globulin 3.1 Albumin/Globulin Ratio 1.1 L Quality Measures Quality Measures sepsis Possible source: unknown Blood cultures ordered: completed in ED Assessment & Plan Assessment Current Active Medications: Generic Name Dose Route Start Last Admin Trade Name Freq PRN Reason Stop Dose Admin Acetaminophen 650 mg 04/09/25 22:54 Acetaminophen 325 Mg Tablet PO 05/09/25 22:53 Q6HR PRN PAIN OR FEVER > 101 Aspirin 325 mg 04/10/25 21:00 Aspirin 325 Mg Tablet PO 05/10/25 20:59 QPM NIKUNJ Atorvastatin Calcium 40 mg 04/09/25 18:00 04/10/25 08:30 Atorvastatin Calcium 20 Mg Tablet PO 05/09/25 17:59 40 mg QDAY NIKUNJ Administration Citalopram Hydrobromide 10 mg 04/09/25 18:00 04/10/25 08:30 Citalopram 20 Mg Tablet PO 05/09/25 17:59 10 mg QDAY NIKUNJ Administration Heparin Sodium (Porcine) 5,000 unit 04/08/25 21:00 04/10/25 08:30 Heparin Sod Inj 5000 Unit/Ml Vial SC 04/22/25 20:59 5,000 unit Q12H NIKUNJ Administration Ceftriaxone Sodium/Dextrose 1 gm in 50 mls @ 100 mls/hr 04/08/25 17:03 04/10/25 08:30 Rocephin/D5w 1gm Iv Premix IV 04/15/25 17:02 50 mls/hr QDAY NIKUNJ Administration Lorazepam 0.5 mg 04/09/25 21:00 04/10/25 08:30 Lorazepam 0.5 Mg Tablet PO 04/14/25 20:59 0.5 mg BID NIKUNJ Administration Multivitamins 1 tab 04/10/25 09:00 04/10/25 08:30 Multivitamins Tablet PO 05/10/25 08:59 1 tab QDAY NIKUNJ Administration Ondansetron HCl 4 mg 04/08/25 08:01 04/08/25 08:23 Ondansetron Inj 2 Mg/Ml Inj 2 Ml IVP 05/08/25 08:00 4 mg Q6HR PRN Administration NAUSEA OR VOMITING Pantoprazole Sodium 40 mg 04/08/25 17:00 04/10/25 08:30 Pantoprazole Inj 40 Mg Vial IVP 05/08/25 16:59 40 mg QDAY NIKUNJ Administration Polyethylene Glycol 34 gm 04/09/25 18:00 04/10/25 09:53 Polyethylene Glycol 17 Gm Packet PO 05/09/25 17:59 Not Given QDAY NIKUNJ Sennosides 1 tab 04/09/25 21:00 04/10/25 08:30 Senna/Docusate Sod 1 Tab Tablet PO 05/09/25 20:59 1 tab BID NIKUNJ Administration Protocol
--- NOTE | 2025-04-10 15:07 | ESDS_ITS ---
Planned Discharge Date 04/10/25 DS: Providers Provider Date of admission: 04/08/25 16:54 Primary care physician: Brady Simpson MD ([facility]) Admitting Provider: Rey Contreras DO Attending Provider on Admission: Rey Contreras DO Consults: 04/08/25 17:01 Consult to Neurology / Tele-Neurology Stat Comment: Febrile Seizure Consulting Provider: Marvel Levine Referral Speech Therapy Routine Comment: Attending Provider on DC: Rey Contreras DO Discharging Provider: Rey Contreras DO Anticipated date of discharge: 04/10/25 DS: Diagnosis Problem List Completed Was Problem List Reviewed/Reconciled?: Yes Hospital Course Hospital Course Hospital course: Hospital course: Mr. Foy is a 85-year-old Prydeinig-speaking male with past medical history of cerebral infarction, muscle weakness, aphasia, hemiplegia, hyperlipidemia, depression, anxiety and dysphagia who presented to [facility] emergency department from [facility] on April 08, 2025 with a chief complaint of seizure. Patient on presentation was encephalopathic, unable to provide history, most of the history was obtained from calling care home facility and EMS report. Patient was noted to have a witnessed seizure in the care home facility which was witnessed by the staff patient did have an episode of involuntary micturition during seizure, no oral trauma was noted. Patient on presentation was noted to be febrile, LP done in ED was unremarkable for infection, CT scan of head was negative CT chest abdomen and pelvis showed suspicion of cystitis. Patient was given IV Tylenol in ED, started on IV antibiotics, admitted to the hospital had neurochecks every 4 hours along with seizure precautions. Neurology was consulted, decision to do MRI and EEG was deferred as patient's cognition improved in morning with IV antibiotics, no overnight fevers were noted urine culture was followed however did not grow any bacteria. Further plan is to discharge patient back to care home facility and follow-up outpatient with primary care physician in 1 to 2 weeks patient will be discharged on oral antibiotics to complete the course of therapy. Patient is stable for discharge and responded well to hospital treatment. Discharge diagnosis: #Acute encephalopathy resolved #Witnessed seizure, likely provoked seizure, febrile seizure #Cystitis #History of CVA #Aphasia, hemiplegia by history #Hyperlipidemia #Depression #Anxiety #Dysphagia #15 mm pulmonary nodule right upper lobe Time Spent with Patient Time attestation: Total time spent providing and/or coordinating discharge services: Time spent: Greater than 30 minutes Exam Vital Signs Temp Pulse Resp BP Pulse Ox O2 Del Method O2 Flow Rate 97.8 F 63 17 138/65 H 99 Nasal Cannula 2 04/10/25 12:00 04/10/25 12:04/10/25 12:04/10/25 12:04/10/25 12:04/10/25 12:04/10/25 12:00 Narrative Exam Physical Exam General: Awake and in no acute distress. More responsive compared to yesterday, has bilateral wrist restraints intact. HEENT: Normocephalic, atraumatic, mucous membranes moist. Heart: Regular rate and rhythm, no murmurs. Lungs: Clear to auscultation with no wheezing or crackles. Abdomen: Soft, nondistended, nontender, positive bowel sounds. ?No guarding or rebound tenderness. Neurologic: Alert and oriented x1 to self, no gross neurological deficit, and patient able to move all 4 extremities. Extremities: No edema. Skin: No rash or ecchymoses. Discharge Plan Plan Patient Disposition: Xfer Skilled Nsg Fac (SNF) Patient condition on transfer: Stable Prescriptions/Referrals Prescriptions/Med Rec: New cefdinir 300 mg capsule 300 mg PO BID 4 Days Qty: 8 0RF Continued atorvastatin 40 mg tablet 40 mg PO .QD citalopram 10 mg tablet 10 mg PO .QD lorazepam 0.5 mg tablet 0.5 mg PO BID aspirin 325 mg capsule 325 mg PO QPM calcium 600 mg capsule 600 mg PO BID ferrous sulfate [Feosol] 325 mg (65 mg iron) tablet 325 mg PO QDAY Fiber Therapy (m-cellulose) 500 mg tablet 500 mg PO QDAY magnesium oxide 400 mg (241.3 mg magnesium) tablet 400 mg PO BID sennosides-docusate sodium [Colace 2-In-1] 8.6-50 mg tablet 1 tab-cap PO BID DAILY VITAMIN FORMULA-MINERALS Tablet 1 tab PO QDAY VIT D3 5,000 unit PO DAILY ondansetron HCl 4 mg tablet 4 mg PO Q4H PRN (Reason: nausea and vomiting) Referrals: Calvin([facility])Brady MD [Primary Care Provider] - Marvel Levine MD [Physician] - Patient/Caregiver Discharge Instructions Discharge Activity: activity as tolerated Other Discharge Activity Instructions:: Complete urinary tract infection treatment with cefdinir for 4 more days. Your seizure was likely secondary to a fever, no seizure activity noted during this hospitalization. Continue all other home medications, we have made no other changes to your home medication. Follow-up outpatient with primary care physician in 1 to 2 weeks. Follow-up with neurologist outpatient. Return to emergency department if symptoms worsen. Other Discharge Diet Instructions: Low-sodium cardiac diet. Education Materials: Urinary Tract Infections in Men, Understanding Urinary Tract ..., Healthy Lifestyle to Prevent ... Print Language: Prydeinig Stand Alone Forms: Elva Award Info., Patient Portal Info Letter Discharge Order Discharge Orders: Discharge (Routine); Ordered 04/10/25 Ordered By: Bridgett Cruz Quality Discharge Quality Measures VTE prophylaxis MD Attestestation MD Attestation I have discussed and was present for the essential components of the discharge history, physical examination, diagnosis, and discharge treatment plan with the resident. I agree with the patient's discharge care as documented by the resident and amended herein by me. Marco Contreras DO. The patient/family understood all discharge instructions, all questions were answered satisfactorily. The patient/family was instructed to return to the Emergency Department is symptoms worsened or persisted. Patient was stable, afebrile at time of discharge back to SNF. Patient's mentation significantly improved admission date. MRI and EEG deferred at this time due to significant improvement per neurology recommendations. All questions were answered satisfactorily and the patient's family was at bedside. Although this document has been carefully reviewed, there may still be some phonetic and other typographical errors. These errors are purely grammatical due to imperfections in the software program and should not be construed in any way to compromise the substance of the patient's medical care during this visit.
[2025-04-10 16:00] VITALS: BP 122/63; PULSE 58; PULSE 62; RESP 19; TEMP 36.1; O2SAT 97
--- NOTE | 2025-04-10 19:40 | PC.NURSE ---
Report given to GUANACO Zhang at [facility]. Also called son Julio to inform him patient is being discharged back to facility. Patient Alert/o x2. Back to baseline. Resp even and unlabored. No acute distress noted. VSS. IVL removed by patient. Discharge packet given to [facility] [facility] ambulance EMT.
[2025-04-13 17:48] LABS: Enterovirus Source CSF; HSV-1 DNA, CSF NOT DETECTED copies/mL; HSV-1 DNA, CSF Source CEREBROSPINAL FLUID; West Nile Virus (IgG), CSF 5.35
[2025-04-14 06:49] LABS: Enterovirus RNA, PCR CSF NOT DETECTED; HSV-2 DNA, CSF NOT DETECTED copies/mL; Oligoclonal Bands, CSF* ABSENT (ABSENT); VDRL, CSF Qual* NON-REACTIVE; West Nile Virus (IgM), CSF <0.90
== END 2025-04-10 19:49 | disposition skilled nursing facility (03) | DRG 463 ==
LOC: SERX 15:32 → SERHOLD 17:18 → S2NX 18:54
PROVIDERS: Student in an Organized Health Care Education/Training Program; Admitting Provider Student in an Organized Health Care Education/Training Program; Emergency Provider Emergency Medicine; PCP Hospitalist; Visit Provider Student in an Organized Health Care Education/Training Program
DX: N30.90 Cystitis, unspecified without hematuria (principal); E78.5 Hyperlipidemia, unspecified; F32.A Depression, unspecified; F41.9 Anxiety disorder, unspecified; G93.49 Other encephalopathy; I69.320 Aphasia following cerebral infarction; I69.351 Hemiplegia and hemiparesis following cerebral infarction affecting right dominant side; I69.391 Dysphagia following cerebral infarction; R56.00 Simple febrile convulsions; R91.1 Solitary pulmonary nodule; Z79.82 Long term (current) use of aspirin
CPT/HCPCS: 36415; 70450; 71260; 74177; 80053; 80061; 81001; 82945; 83605; 83615; 83690; 83735; 83880; 83916; 84100; 84145; 84157; 84443; 84484; 85025; 85610; 85730; 86592; 86788; 86789; 87040; 87070; 87081; 87086; 87205; 87400; 87498; 87530; 87811; 89051; 92610; 93005; 94762; 96365; 96367; 96375; 99291; A4649; J0131; J0696; J1644; J1953; J2060; J2405; J2470; J2543; J3370; J7120; Q9967; A9270